=== PATIENT | female | born 1960 | race Caucasian/White ===

== ENCOUNTER 2016-09-26 12:59 | Emergency (ER) | payer MEDICARE, MEDICAID ==
[2016-09-26 13:11] VITALS: BP 151/85
[2016-09-26] MEDS ORDERED: Acetaminophen/HYDROcodone 325-5 MG Tab PO ONE (13:13)
--- NOTE | 2016-09-26 13:18 | EDM.PDOC ---
ED HPI GENERAL MEDICAL PROBLEM - General Chief Complaint: Lower Extremity Injury/Pain Stated Complaint: BY AMBULANCE, Time Seen by Provider: 09/26/16 13:14 Source of Information: Reports: Patient History Limitations: Reports: No Limitations - History of Present Illness INITIAL COMMENTS - FREE TEXT/NARRATIVE: 56 yo female presents with left ankle pain after twisting and falling 3 steps. Denies LOC. swelling noted, arrived in air cast Onset: Today Duration: Constant Location: Reports: Lower Extremity, Left Quality: Reports: Ache, Throbbing Severity: Moderate Improves with: Reports: None Worsens with: Reports: Movement Context: Reports: Activity Associated Symptoms: Reports: No Other Symptoms Treatments MILL HAND: Reports: Splint(s) (air cast) Left Ankle Pain Score (Numeric/FACES): 5 - Related Data Allergies Allergy/AdvReac Type Severity Reaction Status Date / Time tape Allergy Other Uncoded 09/26/16 13:01 Home Meds: Home Meds ALPRAZolam [ALPRAZolam] 1 tab PO BID PRN 03/25/15 [History] Acetaminophen/oxyCODONE [Percocet 325-10 MG] 1 tab PO TID PRN 03/25/15 [History] Carisoprodol [Carisoprodol] 350 mg PO TID PRN 03/25/15 [History] Montelukast [Singulair] 10 mg PO BEDTIME PRN 03/25/15 [History] atorvaSTATin [Lipitor] 0 mg PO BEDTIME 03/25/15 [History] metFORMIN [Glucophage] 500 tab PO BIDMEALS 03/25/15 [History] PARoxetine [Paxil] 20 mg PO DAILY 09/26/16 [History] Past Medical History HEENT History: Reports: None Cardiovascular History: Reports: High Cholesterol Respiratory History: Reports: None Gastrointestinal History: Reports: Chronic Diarrhea Genitourinary History: Reports: None [employer] History: Reports: None Musculoskeletal History: Reports: Back Pain, Chronic, Fibromyalgia Neurological History: Reports: None Psychiatric History: Reports: Addiction, Anxiety, Panic Attack, Other (See Below ) Other Psychiatric History: NARCOTIC DEPENDENCY Endocrine/Metabolic History: Reports: Obesity/BMI 30+, Other (See Below) Other Endocrine/Metabolic History: prediabetes Hematologic History: Reports: None Immunologic History: Reports: None Oncologic (Cancer) History: Reports: Squamous Cell Carcinoma Dermatologic History: Reports: None - Past Surgical History HEENT Surgical History: Reports: Oral Surgery, Tonsillectomy Female Surgical History: Reports: Breast Biopsy, Hysterectomy Musculoskeletal Surgical History: Reports: Arthroscopic Knee, Other (See Below) Oncologic Surgical History: Reports: Biopsy of Breast Social & Family History - Tobacco Use Smoking Status *Q: Light Tobacco Smoker Years of Tobacco use: 30 Packs/Tins Daily: 0.5 - Recreational Drug Use Recreational Drug Use: No Drug Use in Last 12 Months: No Review of Systems - Review of Systems Review Of Systems: ROS reveals no pertinent complaints other than HPI. ED EXAM, GENERAL - Physical Exam Exam: See Below Exam Limited By: No Limitations General Appearance: Alert, WD/WN, No Apparent Distress Respiratory/Chest: No Respiratory Distress, Lungs Clear, Normal Breath Sounds, No Accessory Muscle Use, Chest Non-Tender Cardiovascular: Normal Peripheral Pulses, Regular Rate, Rhythm, No Edema, No Gallop, No JVD, No Murmur, No Rub Extremities: Normal Inspection, Normal Range of Motion, Normal Capillary Refill , Joint Swelling, Leg Pain, Limited Range of Motion, Redness Neurological: Alert, Oriented, CN II-XII Intact, Normal Cognition, Normal Gait, Normal Reflexes, No Motor/Sensory Deficits Skin Exam: Warm, Dry, Intact, Normal Color, No Rash Course - Vital Signs Last Recorded V/S: Last Vital Signs Temp 97.5 F 09/26/16 13:04 Pulse 104 H 09/26/16 13:04 Resp 22 H 09/26/16 13:04 BP 151/85 H 09/26/16 13:04 Pulse Ox 96 09/26/16 13:04 - Orders/Labs/Meds Orders: Active Orders 24 hr Category Date Time Status Ankle Min 3V Lt [CR] Urgent Exams 09/26/16 13:12 Taken Meds: Medications Discontinued Medications Generic Name Dose Route Start Last Admin Trade Name Freq PRN Reason Stop Dose Admin Hydrocodone Bitart/Acetaminophen 1 tab 09/26/16 13:13 09/26/16 13:25 [place] 325-5 Mg PO 09/26/16 13:14 1 tab ONETIME ONE Administration - Radiology Interpretation Free Text/Narrative:: Possible linear fracture to medial mal. Will refer to PCP for orthopedic referral. Departure - Departure Time of Disposition: 14:27 Disposition: Home, Self-Care 01 Condition: Good Clinical Impression: High ankle sprain of left lower extremity Qualifiers: Encounter type: initial encounter Qualified Code(s): S93.432A - Sprain of tibiofibular ligament of left ankle, initial encounter - Discharge Information Instructions: Ankle Sprain, [id number], Crutch Use, [id number] Forms: ED Department Discharge Additional Instructions: try not to put weight on that left ankle, use crutches at all times. Follow up with Dr. Stoddard to get a referral to ortho for further evaluation of the ankle. Take medication as prescribed. - My Orders Last 24 Hours: My Active Orders 09/26/16 13:12 Ankle Min 3V Lt [CR] Urgent - Assessment/Plan Last 24 Hours: My Active Orders 09/26/16 13:12 Ankle Min 3V Lt [CR] Urgent
== END 2016-09-26 14:33 | disposition home or self-care (01) ==
LOC: DL.ED 12:59
DX: S93.432A Sprain of tibiofibular ligament of left ankle, initial encounter (principal); F17.210 Nicotine dependence, cigarettes, uncomplicated; E78.00 Pure hypercholesterolemia, unspecified; E66.9 Obesity, unspecified; F41.9 Anxiety disorder, unspecified; Z79.899 Other long term (current) drug therapy
CPT/HCPCS: 73610; 99284; A9270

== ENCOUNTER 2017-10-28 06:50 | Day surgery (SDC) | payer MEDICARE, MEDICAID ==
[~2017-10-28 06:50] MED LIST: Lactated Ringers 1,000 ML IV SCH; Sodium Chloride 0.9% 10 ML Syringe FLUSH PRN
[2017-10-28] MEDS ORDERED: Bupivacaine 0.5% 30 ML SDV INJECT ONE ×3 (06:51→09:44)
[2017-10-28] MEDS ORDERED: fentaNYL 100 MCG/2 ML SDV IV ONE (06:51)
[2017-10-28] MEDS ORDERED: Ketorolac 30 MG/ML SDV IVPUSH ONE (06:51)
[2017-10-28] MEDS ORDERED: Propofol 200 MG/20 ML SDV IV ONE (06:51)
[2017-10-28] MEDS ORDERED: Dexamethasone 4 MG/ML SDV IV ONE (06:51)
[2017-10-28] MEDS ORDERED: Ondansetron 4 MG/2 ML SDV IV ONE (06:51)
[2017-10-28] MEDS ORDERED: Midazolam 1 MG/ML 2 ML SDV IV ONE (06:51)
[2017-10-28] MEDS ORDERED: Lidocaine 1% 30 ML SDV INJECT ONE ×3 (06:51→09:44)
[2017-10-28] MEDS ORDERED: Lidocaine 1% 30 ML SDV ONE (08:12)
[2017-10-28] MEDS ORDERED: Bupivacaine 0.5% 30 ML SDV ONE (08:12)
[2017-10-28] MEDS ORDERED: Acetaminophen/oxyCODONE 325-5 MG Tab PO PRN (10:01)
--- NOTE | 2017-10-28 10:04 | PCM.OPNOTE ---
- General Post-Op/Procedure Note Date of Surgery/Procedure: 10/28/17 Operative Procedure(s): left 1st IPJ bone spur excision/cheilectomy with bony ossicle excision Pre Op Diagnosis: Left painful callus/bone spur great toe Post-Op Diagnosis: erica Anesthesia Technique: Local, MAC Primary Surgeon: Morenita Gifford Anesthesia Provider: Damaso Thapa EBL in mLs: 5 Complications: none Condition: Good Free Text/Narrative:: Pt tolerated procedure well and was transported to recovery with vascular status intact to left foot. Well padded compression dressing applied to left foot.
[2017-10-28 11:01] VITALS: BP 143/81
--- NOTE | 2017-10-29 17:07 | OR ---
DATE: 10/28/2017 PREOPERATIVE DIAGNOSIS: Left foot painful bone spur, great toe, and ossicle with callus. POSTOPERATIVE DIAGNOSIS: Left foot painful bone spur, great toe, and ossicle with callus. PROCEDURE PERFORMED: Left hallux distal phalanx bone spur excision with accessory ossicle excision, first interphalangeal joint. ANESTHESIA: Local MAC with preoperative local block of 10 mL of 1:1 mixture of 1% lidocaine plain and 0.5% Marcaine plain. TOURNIQUET TIME: Pneumatic ankle tourniquet, 57 minutes. ESTIMATED BLOOD LOSS: Minimal. SPECIMEN: None. COMPLICATIONS: None. INDICATIONS: Debra is a 57-year-old female who presents with bilateral great toe painful callus. She states that this has been going on for many years and gradually worsening. She tries to shave the calluses down, but they are very painful and grow back very quickly. She has tried multiple different shoes with padding with no relief. She has pain whenever she is standing or walking, rated 4/10 at worst. It is to the point that she would like to have these surgically corrected. X-rays of the left foot reveals a large bone spur at the medial distal phalanx interphalangeal joint area, and there is also an accessory bone at the interphalangeal joint. The hallux is an, otherwise, straight rectus alignment. The patient voiced good understanding of the proposed procedure and possible complications, elects to have surgery at this time. DESCRIPTION OF THE PROCEDURE: The patient was taken to the operating room lying in the supine position. After adequate anesthesia induction as described above, the left foot was prepped and draped in the usual sterile fashion. A pneumatic ankle tourniquet was inflated to 125 mmHg. Attention was then directed to the left great toe at the medial interphalangeal joint, where an approximately 3 cm linear incision was made overlying the medial aspect of the joint area. Sharp and blunt dissection was performed down to the level of the first interphalangeal joint and joint capsule. A linear capsulotomy was made, and the medial aspect was exposed. A large spur was noted at this area and was removed using a rongeur and also a bone rasp to smooth out all edges. Fluoroscopy was used to verify proper resection of the bone spur and then noted that there was an accessory ossicle at the plantar aspect of that joint, and this was completely excised. It was felt that there was no remaining prominence present. The interphalangeal joint looked healthy in appearance without any defects. The area was then flushed with copious amounts of sterile saline. Deep closure was completed with 0 Vicryl, and skin closure was completed with 4-0 nylon. The area was dressed with Xeroform to the incision site, fluffs, Webril, and a well- padded compression dressing. She was placed in a postoperative shoe. The patient tolerated anesthesia and the procedure well and was transported to the recovery room with vital signs stable and vascular status intact as noted by immediate hyperemia to all digits upon deflation of the ankle tourniquet. She was then discharged home when she met hospital discharge requirements. [facility] /[id number]
== END 2017-10-28 10:58 | disposition home or self-care (01) ==
LOC: DL.SDS 06:50
PROVIDERS: ATTEND Podiatrist
DX: M25.775 Osteophyte, left foot (principal); E11.9 Type 2 diabetes mellitus without complications; E66.01 Morbid (severe) obesity due to excess calories; Z68.39 Body mass index [BMI] 39.0-39.9, adult; F17.210 Nicotine dependence, cigarettes, uncomplicated; E78.5 Hyperlipidemia, unspecified; F41.9 Anxiety disorder, unspecified; F32.9 Major depressive disorder, single episode, unspecified; Z79.84 Long term (current) use of oral hypoglycemic drugs; Z79.82 Long term (current) use of aspirin; Z79.899 Other long term (current) drug therapy; Z88.6 Allergy status to analgesic agent
CPT/HCPCS: 01480; 28108; J1100; J1885; J2250; J2405; J2704; J3010; J3490; J7120

== ENCOUNTER 2020-05-03 08:32 | Day surgery (SDC) | payer MEDICARE ==
[~2020-05-03 08:32] MED LIST changes: -Sodium Chloride 0.9% 10 ML Syringe FLUSH PRN
[2020-05-03] MEDS ORDERED: Ondansetron 4 MG/2 ML SDV IV ONE (08:33)
[2020-05-03] MEDS ORDERED: Propofol 200 MG/20 ML SDV IV ONE (08:33)
[2020-05-03] MEDS ORDERED: Succinylcholine 200 MG/10 ML MDV IV ONE (08:33)
[2020-05-03] MEDS ORDERED: Midazolam 1 MG/ML 2 ML SDV IV ONE (08:33)
[2020-05-03] MEDS ORDERED: Lidocaine 1% with EPINEPHrine 1:100,000 20 ML MDV INJECT ONE (08:33)
[2020-05-03] MEDS ORDERED: Ketorolac 30 MG/ML SDV IVPUSH ONE (08:33)
[2020-05-03] MEDS ORDERED: Rocuronium 100 MG/10 ML MDV IV ONE (08:33)
[2020-05-03] MEDS ORDERED: fentaNYL 100 MCG/2 ML SDV IV ONE (08:33)
[2020-05-03] MEDS ORDERED: Dexamethasone 4 MG/ML SDV IV ONE (08:33)
[2020-05-03] MEDS ORDERED: Succinylcholine 200 MG/10 ML MDV ONE (10:00)
[2020-05-03] MEDS ORDERED: Lidocaine 1% with EPINEPHrine 1:100,000 20 ML MDV ONE (10:01)
[2020-05-03] MEDS ORDERED: Lidocaine 1% with EPINEPHrine 1:100,000 30 ML MDV INJECT ONE (11:03)
--- NOTE | 2020-05-03 12:04 | OR ---
DATE: 05/03/2020 PREOPERATIVE DIAGNOSIS: Multiple external hemorrhoids. POSTOPERATIVE DIAGNOSIS: Multiple external hemorrhoids. PROCEDURE: External hemorrhoidectomy, left lateral and a posterior group. ANESTHESIA: General. ESTIMATED BLOOD LOSS: Minimum. SPECIMEN: Hemorrhoid x2. INDICATION FOR PROCEDURE: This 60-year-old female has moderate-size external symptomatic hemorrhoids. DESCRIPTION OF PROCEDURE: After adequate preparation in a jackknife position, the left lateral group of large hemorrhoids was elevated off the skin. This was then incised with a cautery, taken down to the subcutaneous level and the external hemorrhoid removed. The deep space of the hemorrhoid was closed with an interrupted 2-0 Vicryl suture and a 3-0 Monocryl intracuticular for the skin. There was another large posterior hemorrhoid group. This was excised in the same fashion. The deeper layer was closed with 2-0 Vicryl suture and 3-0 Monocryl was used in a running fashion for the skin. She does have 1 right lateral group of hemorrhoid, it is not quite as big and symptomatic, I chose to leave that one. If she needs to have one done at a later time, we could redo the right side. Hemostasis was controlled. 1% Xylocaine with epinephrine was then infused into the subcutaneous skin. The patient was taken to the recovery room. [facility] /[id number]
[2020-05-03 14:32] VITALS: BP 109/87; PULSE 104
== END 2020-05-03 13:00 | disposition home or self-care (01) ==
LOC: DL.SDS 08:32 → EDSTATUS 10:00 → DL.SDS 13:00
PROVIDERS: ATTEND Surgery
DX: K64.5 Perianal venous thrombosis (principal); E78.00 Pure hypercholesterolemia, unspecified; E11.9 Type 2 diabetes mellitus without complications; J45.909 Unspecified asthma, uncomplicated; E66.9 Obesity, unspecified; F17.200 Nicotine dependence, unspecified, uncomplicated; Z88.8 Allergy status to other drugs, medicaments and biological substances; Z01.812 Encounter for preprocedural laboratory examination; Z20.822 Contact with and (suspected) exposure to COVID-19; Z79.84 Long term (current) use of oral hypoglycemic drugs; Z79.899 Other long term (current) drug therapy; Z98.890 Other specified postprocedural states; Z68.39 Body mass index [BMI] 39.0-39.9, adult
CPT/HCPCS: 00902; 46250; 82962; 93005; J0330; J1100; J1885; J2250; J2405; J2704; J3010; J7120; U0002; 88304

== ENCOUNTER 2023-04-09 21:09 | Emergency (ER) | payer MEDICARE ==
[2023-04-09 21:08] LABS: BASOPHILS PERCENT AUTO 0.1 % (0.0-1.0); EOSINOPHILS PERCENT AUTO 0.4 % (1.0-3.0); HEMATOCRIT 51.6 % (37.0-47.0); LYMPHOCYTES PERCENT AUTO 6.7 % (20.5-50.1); MEAN CORPUSCULAR HEMOGLOBIN 31.6 pg (27.0-34.0); MEAN CORPUSCULAR HGB CONC 34.9 g/dL (33.0-35.0); MEAN CORPUSCULAR VOLUME 90.7 fL (80-100); MONOCYTES PERCENT AUTO 4.4 % (2-8); NEUTROPHILS PERCENT AUTO 88.4 % (42.2-75.2); PLATELET COUNT,PLT 293 10^3/uL (150-450); RED BLOOD CELL COUNT 5.69 10^6/uL (4.2-5.4); WHITE BLOOD CELL COUNT,WBC 16.6 10^3/uL (5.0-10.0)
[~2023-04-09 21:09] MED LIST changes: +Dicyclomine 20 MG/2 ML SDV IM ONE; -Lactated Ringers 1,000 ML IV SCH; +Ondansetron 4 MG/2 ML SDV IVPUSH ONE; +Sodium Chloride 0.9% 1,000 ML IV STA; +Sodium Chloride 0.9% 10 ML Syringe FLUSH PRN
[2023-04-09 21:18] LABS: APPEARANCE,URINE CLEAR (CLEAR); BILIRUBIN,URINE MODERATE (NEGATIVE); COLOR,URINE YELLOW (YELLOW); GLUCOSE,URINE NEGATIVE (NEGATIVE); KETONES,URINE 15 (NEGATIVE); LEUKOCYTE ESTERASE,URINE NEGATIVE (NEGATIVE); NITRITE,URINE POSITIVE (NEGATIVE); OCCULT BLOOD,URINE TRACE-INTACT (NEGATIVE); PH,URINE 5.5 (5.0-9.0); PROTEIN,URINE 100 (NEGATIVE); UROBILINOGEN,URINE 0.2 mg/dL (0.2-1.0)
[2023-04-09 21:26] LABS: A/G RATIO 1.1; ANION GAP 21.2 mEq/L (7-13); BILIRUBIN TOTAL 0.6 mg/dL (0.2-1.0); CALCIUM 9.2 mg/dL (8.5-10.1); CREATININE 1.14 mg/dL (0.55-1.02); EST CRCL DRUG DOSING (CG) 51.61 mL/min; POTASSIUM,K 4.2 mmol/L (3.5-5.1); PROTEIN TOTAL,TP 7.6 g/dL (6.4-8.2)
[2023-04-09] MEDS ORDERED: Sodium Chloride 0.9% 1,000 ML IV ONE (21:40)
[2023-04-09] MEDS ORDERED: Ondansetron 4 MG/2 ML SDV IVPUSH ONE (21:43)
[2023-04-09] MEDS ORDERED: Ketorolac 30 MG/ML SDV IVPUSH ONE (21:44)
[2023-04-09 21:50] LABS: CORONAVIRUS COVID-19 NAA NEGATIVE (NEGATIVE); INFLUENZA A NAA NEGATIVE (NEGATIVE); INFLUENZA B NAA NEGATIVE (NEGATIVE); RESPIRATORY SYNCYTIAL VIR NAA NEGATIVE (NEGATIVE)
[2023-04-09] MEDS ORDERED: cefTRIAXone 1 GM Vial IVPUSH ONE (21:57)
[2023-04-09] MEDS ORDERED: Iopamidol 612 MG/ML 100 ML Bottle IVPUSH ONE (21:57)
[2023-04-09 22:06] VITALS: BP 139/91; PULSE 108
[2023-04-09] MEDS ORDERED: Metoclopramide 10 MG/2 ML SDV IVPUSH ONE (22:38)
[2023-04-09] MEDS ORDERED: diphenhydrAMINE 50 MG/ML SDV IVPUSH ONE (22:38)
[2023-04-09 22:49] LABS: AMORPHOUS SEDIMENT,URINE FEW /HPF (NOT SEEN); BACTERIA,URINE MODERATE /HPF (0-FEW/HPF); EPITHELIAL CELLS,URINE MANY /HPF (NOT SEEN); HYALINE CASTS,URINE MODERATE; MUCUS,URINE MODERATE /LPF (NOT SEEN); RBC,URINE 0-5 /HPF (0-5)
[2023-04-09] MEDS ORDERED: Take Home: Cephalexin 500 MG Cap, 6 Cap Pack PO ONE (23:12)
[2023-04-09] MEDS ORDERED: Take Home: Ondansetron 4 MG Tab.DIS, 5 Tab Pack PO ONE (23:12)
== END 2023-04-09 23:45 | disposition home or self-care (01) ==
LOC: DL.ED 21:09
DX: N39.0 Urinary tract infection, site not specified (principal); R19.7 Diarrhea, unspecified; E78.00 Pure hypercholesterolemia, unspecified; J45.909 Unspecified asthma, uncomplicated; E11.9 Type 2 diabetes mellitus without complications; E66.9 Obesity, unspecified; Z91.048 Other nonmedicinal substance allergy status; Z88.6 Allergy status to analgesic agent; Z79.84 Long term (current) use of oral hypoglycemic drugs; Z79.899 Other long term (current) drug therapy; Z68.38 Body mass index [BMI] 38.0-38.9, adult
CPT/HCPCS: 0241U; 36415; 74177; 80053; 81001; 83690; 85025; 87086; 96361; 96372; 96374; 96375; 96376; 99284; A9270; J0500; J0696; J1200; J1885; J2405; J2765; J7030; J7050; Q0162; Q9967; J3490